=== PATIENT | female | born 2005 | race Caucasian/White ===

== ENCOUNTER 2023-11-23 16:57 | Outpatient (CLI) | payer BC ==
[2023-11-23 17:49] LABS: HCG,QUAL RESULT NEGATIVE (NEGATIVE)
[2023-11-23 17:51] LABS: BASOPHILS # (AUTO) 0.1 K/uL (0.0-0.2); BASOPHILS % (AUTO) 0.8 % (0.0-2.0); EOSINOPHILS # (AUTO) 0.5 K/uL (0.0-0.4); EOSINOPHILS % (AUTO) 7.9 % (0.0-4.0); HEMATOCRIT 36.5 % (36-48); HEMOGLOBIN 12.2 g/dL (12.0-16.0); LYMPHOCYTES % (AUTO) 44.1 % (20.5-51.5); MEAN CORPUSCULAR HEMOGLOBIN 29 pg (27-31); MEAN CORPUSCULAR HGB CONC 33 % (32-36); MEAN CORPUSCULAR VOLUME 87 fL (79.0-98.0); MONOCYTES # (AUTO) 0.7 K/uL (0.0-1.0); MONOCYTES % (AUTO) 9.9 % (1.7-9.3); NEUTROPHILS # (AUTO) 2.5 K/uL (1.8-7.7); NEUTROPHILS % (AUTO) 37.3 % (40.0-70.0); PLATELET COUNT (AUTO) 222 K/uL (130-430); RED CELL DISTRIBUTION WIDTH 13.2 % (9.0-15.0); WHITE BLOOD COUNT (AUTO) 6.7 K/uL (4.5-11.0)
[2023-11-23 18:05] LABS: PROTHROMBIN TIME 10.9 SECS (9.5-12.5)
== END 2023-11-23 18:39 | disposition home or self-care (01) ==
LOC: SLB 16:57
PROVIDERS: ATTEND Family Medicine
DX: J34.2 Deviated nasal septum (principal); J32.4 Chronic pansinusitis; J34.3 Hypertrophy of nasal turbinates; J34.89 Other specified disorders of nose and nasal sinuses
CPT/HCPCS: 36415; 84703; 85025; 85610; 85730